=== PATIENT | male | born 1945 | race Caucasian/White ===

== ENCOUNTER 2017-02-22 13:29 | Inpatient (IN) | payer MEDICARE ==
[~2017-02-22 13:29] MED LIST: Iopamidol 370 76% 100 ML VIAL ONE
[2017-02-22] MEDS ORDERED: Water For Inject, Bacteriostat 30 ML ONE (13:35)
[2017-02-22] MEDS ORDERED: methylPREDNISolone Sod Succ/PF 125 MG/2 ML VIAL ONE (13:35)
[2017-02-22] MEDS ORDERED: diphenhydrAMINE HCl 50 MG/ML 1 ML VIAL ONE (13:37)
[2017-02-22 13:50] LABS: #Basophils 0.1 thou/uL (0.0-0.2); #Eosinphils 0.1 thou/uL (0.0-0.7); #Lymphocytes 1.6 thou/uL (1.20-3.40); #Monocytes 0.9 thou/uL (0.11-0.59); %Basophils 0.5 % (0.0-1.0); %Eosinophils 1.3 % (0.0-10.0); %Lymphocytes 15.3 % (21.0-51.0); %Monocytes 8.1 % (0.0-10.0); Hematocrit 44.5 % (42.0-52.0); Mean Platelet Volume 7.8 fL (7.4-10.4); Red Blood Cell (RBC) Count 4.63 mill/uL (4.70-6.10); White Blood Cell (WBC) Count 10.6 thou/uL (4.8-10.8)
[2017-02-22] MEDS ORDERED: Nitroglycerin 100MG/250ML BOT 250 ML ONE (14:05)
[2017-02-22] MEDS ORDERED: Norepinephrine 4 MG/4 ML VIAL ONE ×2 (14:19)
[2017-02-22] MEDS ORDERED: Heparin 10,000 UNITS/1 ML VIAL ONE (14:24)
[2017-02-22] MEDS ORDERED: Adenosine 6 MG/2 ML VIAL ONE (14:26)
[2017-02-22 14:30] LABS: Troponin I 0.463 ng/mL (< 0.028)
[2017-02-22 14:46] LABS: ALT (SGPT) 24 U/L (8-55); AST (SGOT) 29 U/L (5-34); Alkaline Phosphatase 62 U/L (40-150); BUN (Urea Nitrogen) 19 mg/dL (8.4-25.7); Bilirubin, Total 2.1 mg/dL (0.2-1.2); CK (CPK) 123 U/L (30-200); Calc. Creatinine Clearance 0 mL/min (70-130); Calcium 8.3 mg/dL (7.8-10.44); Carbon Dioxide 15 mmol/L (23-31); Chloride 110 mmol/L (98-107); Estimated GFR-MDRD 66; Globulin 2.5 g/dL (2.4-3.5); Protein, Total 5.9 g/dL (5.8-8.1)
[2017-02-22 14:48] LABS: Anion Gap 19 mmol/L (10-20)
[2017-02-22] MEDS ORDERED: Mag-Al 1200 mg/1200 mg/30 ML UDCUP PO PRN (15:10)
[2017-02-22] MEDS ORDERED: Zolpidem Tartrate 5 MG TAB PO PRN (15:10)
[2017-02-22] MEDS ORDERED: Milk Of Magnesia 30 ML UDCUP PO PRN (15:10)
--- NOTE | 2017-02-22 15:13 | HP ---
DATE OF CONSULTATION: 02/22/2017 CHIEF COMPLIANT: Acute myocardial infarction. HISTORY OF PRESENT ILLNESS: Mr. Gutierrez is a pleasant 72-year-old gentleman, who is a patient of Dr. Chet Simons. He has a history of CAD, status post bypass surgery in [place] in addition to \\\\"16 stents\\\\" per his history through the years. This was all done in [place], [place]. He was last seen at [facility] on 02/19/2017 for CVA. He also admits to have congestive heart failure. Mr. Gutierrez states he had presented with chest pain 2 hours prior to presentation. Pain continues. PAST MEDICAL HISTORY: As above including ischemic cardiomyopathy, ICD placement , renal insufficiency, diabetes mellitus, hypertension, CVA, cholecystectomy and right shoulder surgery. MEDICATIONS: Lipitor, Coreg, Plavix, Zetia, fluoxetine, Lantus, Flomax, lisinopril, Ultram. ALLERGIES: STREPTOKINASE and IODINE. FAMILY HISTORY: Positive for CAD. REVIEW OF SYSTEMS: Ten-point review of systems is reviewed and as above, otherwise negative. PHYSICAL EXAMINATION: VITAL SIGNS: Blood pressure 140/70, pulse 80, respirations 20. GENERAL: He does appear in a moderate distress. The patient appears his stated age. NEUROLOGIC: The patient is alert and oriented times 3 with no focal neurologic deficits. HEENT: Sclerae without icterus. Mouth has moist mucous membranes with normal pallor. NECK: No JVD. Carotid upstroke brisk. No bruits bilaterally. LUNGS: Clear to auscultation with unlabored respirations. BACK: No scoliosis or kyphosis. CARDIAC: Regular rate and rhythm with normal S1 and S2. No S3 or S4 noted. No significant rubs, murmurs, thrills, or gallops noted throughout the precordium. PMI is not displaced. There is no parasternal heave. ABDOMEN: Soft, nontender, nondistended. No peritoneal signs present. No hepatosplenomegaly. No abnormal striae. EXTREMITIES: 2+ femoral and 2+ dorsalis pedis pulses. No cyanosis, clubbing, or edema. SKIN: No gross abnormalities. PERTINENT LABS: Currently pending. Last creatinine of 1.33 with a GFR of 53. Troponin pending. EKG shows normal sinus rhythm with ST segment elevation noted anteriorly. IMPRESSION: 1. Acute myocardial infarction. 2. Ischemic cardiomyopathy. 3. Coronary artery disease. 4. Status post bypass pressure. 5. Previous stent placement. RECOMMENDATIONS: Mr. Gutierrez is certainly at significant increased risk of complications given renal insufficiency, history of contrast reaction, ischemic cardiomyopathy and multiple stents and history of bypass. He understands the risks to proceed with urgent coronary angiography. At this point, we would feel prudent to proceed given the history of EF of 20-25%. His risk of dying is markedly increased without treatment. I discussed the procedure in full detail with Mr. Gutierrez. The risks of the procedure were also discussed. The risks of the procedure include but are not limited to the following: , stroke, NH, need for emergency surgery, loss of limb, bleeding, and infection, as well as a reaction to the dye causing kidney failure and needing long-term dialysis. I also discussed the risks of PCI to include all of the above including coronary dissection and perforation in addition to acute stent thrombosis and restenosis. All questions about the procedure were answered. Given the above, the patient agreed to proceed with coronary angiography and possible PCI. All questions were answered. I also discussed drug-coated versus nondrug coated stent placement. There are no contraindications. We will proceed with drug-coated stent placement if needed. He understands the risk of contrast nephropathy. ISH
[2017-02-22] MEDS ORDERED: Iopamidol 370 76% 100 ML VIAL ONE (16:51)
[2017-02-22 17:55] LABS: Troponin I 1.654 ng/mL (< 0.028)
[2017-02-22] MEDS: Sodium Chloride 0.9% 1,000 ML IV SCH (18:16)
[2017-02-22] MEDS: Morphine Sulfate 2 MG/ML SYRINGE SLOW IVP PRN (19:33)
[2017-02-22] MEDS ORDERED: Atorvastatin Calcium 40 MG TAB PO SCH (21:00)
--- NOTE | 2017-02-22 21:34 | CCL ---
CATH ADDENDUM: 02/22/2017 Mr. Gutierrez was seen and evaluated for an acute myocardial infarction. He underwent successful angiography. He underwent successful stent placement to what appeared to be a saphenous vein graft to the LAD. His SIMONS appeared to graft either the LAD or the diagonal branch. His films from [place] were not available. There was FRANKY 1 flow present. With a SIMONS guide, I did engage the SIMONS. Wire was placed distally and successfully. A 2.5 balloon catheter was placed into what appeared to be the LAD. There continued to be FRANKY 1 flow. The LAD was never truly visualized. I was concerned about inflating an area that could not be visualized. Given that his symptoms have markedly improved, I decided not to proceed with further inflation. The graft to the LAD appeared to feed the right coronary artery. The patient was transferred to the ICU in guarded condition. POS: [facility]
[2017-02-23] MEDS: Sodium Chloride 0.9% 1,000 ML IV SCH ×2 (02:11→11:45)
[2017-02-23] MEDS: Acetaminophen/Codeine 30-300mg Tablet PO PRN ×3 (04:11→22:06)
[2017-02-23 05:04] LABS: #Lymphocytes 0.7 thou/uL (1.20-3.40); #Monocytes 0.4 thou/uL (0.11-0.59); %Basophils 0.1 % (0.0-1.0); %Eosinophils 0.1 % (0.0-10.0); %Lymphocytes 5.1 % (21.0-51.0); %Monocytes 3.1 % (0.0-10.0); Hematocrit 42.3 % (42.0-52.0); Red Blood Cell (RBC) Count 4.47 mill/uL (4.70-6.10); White Blood Cell (WBC) Count 14.2 thou/uL (4.8-10.8)
[2017-02-23 05:24] LABS: ALT (SGPT) 42 U/L (8-55); AST (SGOT) 171 U/L (5-34); Alkaline Phosphatase 63 U/L (40-150); Anion Gap 18 mmol/L (10-20); BUN (Urea Nitrogen) 19 mg/dL (8.4-25.7); Bilirubin, Total 1.7 mg/dL (0.2-1.2); Calc. Creatinine Clearance 0 mL/min (70-130); Calcium 8.7 mg/dL (7.8-10.44); Carbon Dioxide 18 mmol/L (23-31); Chloride 105 mmol/L (98-107); Estimated GFR-MDRD 66; Globulin 2.8 g/dL (2.4-3.5); Protein, Total 6.3 g/dL (5.8-8.1)
[2017-02-23] MEDS: Clopidogrel Bisulfate 75 MG TAB PO SCH (08:59)
[2017-02-23] MEDS: Morphine Sulfate 2 MG/ML SYRINGE SLOW IVP PRN (11:42)
[2017-02-23] MEDS ORDERED: Morphine Sulfate 2 MG/ML SYRINGE SLOW IVP SCH (12:15)
[2017-02-23 13:32] VITALS: BMI 29.7
--- NOTE | 2017-02-23 15:48 | PDOC.PN ---
- Subjective Encounter Start Date: 02/23/17 Encounter Start Time: 15:46 -: old records requested/rev pt is admitted for acute ME, he had cardiac cath yesterday, today we are consulted for diabetes management, no fever, no chest pain since CVA he reports some visual hallucination - Objective MAR Reviewed: Yes Vital Signs & Weight: Vital Signs (12 hours) Temp Pulse Resp Pulse Ox 02/23/17 11:00 97.9 F 02/23/17 08:00 97.5 F L 82 24 H 94 L 02/23/17 07:00 97.5 F L 02/23/17 04:00 97.6 F Weight Weight 183 lb 13.848 oz Most Recent Monitor Data Heart Rate from ECG 84 NIBP 129/79 NIBP BP-Mean 97 Respiration from ECG 15 SpO2 95 I&O: 02/22/17 02/23/17 02/24/17 06:59 06:59 06:59 Intake Total 2134 970 Output Total 1200 85 Balance 934 885 Result Diagrams: 02/23/17 04:03 02/23/17 04:03 Radiology Reviewed by me: Yes EKG Reviewed by me: Yes (NSR) Phys Exam - Physical Examination Constitutional: NAD HEENT: PERRLA, moist MMs, sclera anicteric Neck: no JVD, supple Respiratory: no wheezing, no rales, no rhonchi Cardiovascular: RRR, no significant murmur, no rub Gastrointestinal: soft, non-tender, no distention, positive bowel sounds Musculoskeletal: no edema, pulses present Neurological: non-focal, normal sensation, moves all 4 limbs Lymphatic: no nodes Psychiatric: normal affect Skin: no rash, normal turgor Dx/Plan (1) Acute [place] Code(s): I21.3 - ST ELEVATION (STEMI) MYOCARDIAL INFARCTION OF [facility] SITE Status: Acute (2) CAD (coronary artery disease) Code(s): I25.10 - ATHSCL HEART DISEASE OF [place] CORONARY ARTERY W/O ANG PCTRS Status: Chronic Qualifiers: Coronary Disease-Associated Artery/Lesion type: bypass graft [place] vs. transplanted heart: [place] heart Associated angina: without angina Qualified Code(s): I25.810 - Atherosclerosis of coronary artery bypass graft(s) without angina pectoris (3) CVA (cerebral vascular accident) Code(s): I63.9 - CEREBRAL INFARCTION, UNSPECIFIED Status: Chronic Qualifiers: Precerebral and cerebral artery: posterior cerebral artery Laterality of affected vessel: right (4) Chronic systolic (congestive) heart failure Code(s): I50.22 - CHRONIC SYSTOLIC (CONGESTIVE) HEART FAILURE Status: Chronic (5) DM type 2 (diabetes mellitus, type 2) Status: Chronic Qualifiers: Diabetes mellitus complication status: with ophthalmic complications Diabetes mellitus complication detail: with diabetic retinopathy Diabetic retinopathy severity: with unspecified retinopathy severity 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 Review of Systems - Review of Systems ENT: negative: Ear Pain, Ear Discharge, Nose Pain, Nose Discharge, Nose Congestion, Mouth Pain, Mouth Swelling, Throat Pain, Throat Swelling, Other Respiratory: negative: Cough, Dry, Shortness of Breath, Hemoptysis, SOB with Excertion, Pleuritic Pain, Sputum, Wheezing Cardiovascular: negative: Chest Pain, Palpitations, Orthopnea, Paroxysmal Noc. Dyspnea, Edema, Light Headedness, Other Gastrointestinal: negative: Nausea, Vomiting, Abdominal Pain, Diarrhea, Constipation, Melena, Hematochezia, Other Genitourinary: negative: Dysuria, Frequency, Incontinence, Hematuria, Retention , Other Musculoskeletal: negative: Neck Pain, Shoulder Pain, Arm Pain, Back Pain, Hand Pain, Leg Pain, Foot Pain, Other Skin: negative: Rash, Lesions, Alexander, Bruising, Other - Medications/Allergies Allergies/Adverse Reactions: Allergies Allergy/AdvReac Type Severity Reaction Status Date / Time Iodine and Iodide Containing Allergy Verified 02/17/17 17:02 Produc streptokinase Allergy Verified 12/07/16 12:55 Medications: Current Medications Acetaminophen/Codeine Phosphate (Tylenol #3) 1 tab PO Q4H PRN PRN Reason: Mild Pain (1-3) Last Admin: 02/23/17 08:59 Dose: 1 tab Al Hydroxide/Mg Hydroxide (Maalox) 30 ml PO Q3H PRN PRN Reason: Indigestion Last Admin: 02/23/17 11:41 Dose: 30 ml Aspirin (Aspirin Chewable) 81 mg PO DAILY [facility] Last Admin: 02/23/17 08:59 Dose: 81 mg Atorvastatin Calcium (Lipitor) 80 mg PO HS [facility] Carvedilol (Coreg) 6.25 mg PO BID-WM [facility] Clopidogrel Bisulfate (Plavix) 75 mg PO DAILY [facility] Last Admin: 02/23/17 08:59 Dose: 75 mg Ezetimibe (Zetia) 10 mg PO DAILY [facility] Fluoxetine HCl (Prozac) 20 mg PO DAILY [facility] Magnesium Hydroxide (Milk Of Magnesium) 30 ml PO Q12H PRN PRN Reason: Constipation Morphine Sulfate (Morphine Sulfate) 2 mg SLOW IVP Q4H PRN PRN Reason: Moderate Pain (4-6) Ranolazine (Ranexa) 1,000 mg PO BID [facility] Torsemide (Demadex) 20 mg PO DAILY [facility] Zolpidem Tartrate (Ambien) 5 mg PO HSPRN PRN PRN Reason: Insomnia Last Admin: 02/22/17 21:06 Dose: 5 mg
[2017-02-23] MEDS ORDERED: Dextrose 50% Abboject 50 ML SYRINGE SLOW IVP PRN (15:49)
[2017-02-23] MEDS ORDERED: Dextrose 5% in Water 1,000 ML IV PRN (15:49)
[2017-02-23] MEDS ORDERED: HumaLOG 300 UNITS/3 ML VIAL SC PRN (15:49)
--- NOTE | 2017-02-23 16:17 | PRG ---
DATE OF SERVICE: 02/23/2017 SERVICE: Pulmonary Medicine. INTERVAL HISTORY: The patient's chest discomfort is actually improved compared to yesterday. That being said, he is very sad this morning. On the SIG-E-CAPS, he has basically everything that is donis positive. He also has suicidal ideation. He is having some hallucinations and sees things crawlin g on the dasilva. From a medical standpoint, things are improving, but psychologically I wonder wheth er or not he is suffering from severe depression associated with his multiple comorbidities and rece nt losses. PAST MEDICAL HISTORY: 1. Chronic systolic heart failure. 2. Chronic kidney disease. 3. Type 2 diabetes mellitus. 4. Hypertension. 5. History of stroke. PAST SURGICAL HISTORY: 1. Right shoulder surgery. 2. Cholecystectomy. ALLERGIES: STREPTOKINASE, IODINE. MEDICATIONS: List of inpatient medicines were reviewed. No updates were made at this time. FAMILY HISTORY: Noncontributory. SOCIAL HISTORY: Negative for significant tobacco, alcohol or illicit drug use presently. He has no exposure to chemicals, dust, asbestosis or tuberculosis. REVIEW OF SYSTEMS: General, head, ears, eyes, nose, throat, cardiovascular, respiratory, GI, , mu sculoskeletal, neurologic and skin is negative except as mentioned in the HPI. PHYSICAL EXAMINATION: VITAL SIGNS: Afebrile, pulse 84, blood pressure 120/79, respirations 15, saturation 95% on room air . GENERAL: Patient is awake, alert, in no apparent distress. LUNGS: Excellent air entry. There is no prolonged expiratory phase, wheezing, rhonchi or crackles. HEART: Normal rate, regular. ABDOMEN: Soft, nontender, nondistended. Bowel sounds positive. MUSCULOSKELETAL: No cyanosis or clubbing. No pitting in the bilateral lower extremities. NEUROLOGIC: Grossly nonfocal. LABORATORY DATA: WBC 14.2, hemoglobin 13.6, and platelets 235,000. Creatinine 1.10 and stable. Bi carb has improved to 18. Total bilirubin is better at 1.7. Liver function studies are otherwise un remarkable except for an AST of 171. Troponin has increased to 1.65. ASSESSMENT: 1. ST elevation myocardial infarction. 2. Major depressive disorder, suspected. PLAN: From my perspective, he is stable for transition out to the telemetry unit, Once the patient goes to the floor, he will have no further requirements from Pulmonary or Critical Care opinion. T hat being said, I will place a mental health evaluation for him because at this point, he says he is actively suicidal.
[2017-02-23] MEDS: HumaLOG 300 UNITS/3 ML VIAL SC PRN (17:01)
[2017-02-23] MEDS: Carvedilol 6.25 MG TAB PO SCH (17:01)
[2017-02-23] MEDS: Tamsulosin HCl 0.4 MG CAP PO SCH (22:07)
[2017-02-23] MEDS: Atorvastatin Calcium 40 MG TAB PO SCH (22:07)
[2017-02-24] MEDS: HumaLOG 300 UNITS/3 ML VIAL SC PRN ×2 (07:36→11:48)
[2017-02-24] MEDS: Clopidogrel Bisulfate 75 MG TAB PO SCH (08:30)
[2017-02-24] MEDS: Torsemide 20 MG TAB PO SCH (08:30)
[2017-02-24] MEDS: Ezetimibe 10 MG TAB PO SCH (08:30)
[2017-02-24] MEDS: FLUoxetine HCl 20 MG CAP PO SCH (08:31)
[2017-02-24] MEDS: Carvedilol 6.25 MG TAB PO SCH ×2 (08:31→17:39)
[2017-02-24] MEDS ORDERED: INSULIN DEGLUDEC 50 UNIT SQ SCH (09:00)
[2017-02-24] MEDS ORDERED: Tamsulosin HCl 0.4 MG CAP PO SCH (09:00)
[2017-02-24 09:30] LABS: #Lymphocytes 1.3 thou/uL (1.20-3.40); #Monocytes 1.6 thou/uL (0.11-0.59); #Neutrophils 13.7 thou/uL (1.40-6.50); %Eosinophils 0.3 % (0.0-10.0); %Lymphocytes 7.9 % (21.0-51.0); %Monocytes 9.4 % (0.0-10.0); Hematocrit 43.3 % (42.0-52.0); Mean Platelet Volume 7.8 fL (7.4-10.4); Red Blood Cell (RBC) Count 4.53 mill/uL (4.70-6.10); White Blood Cell (WBC) Count 16.6 thou/uL (4.8-10.8)
[2017-02-24 09:51] LABS: Anion Gap 17 mmol/L (10-20); BUN (Urea Nitrogen) 22 mg/dL (8.4-25.7); BUN/Creatinine Ratio 18.18; Calc. Creatinine Clearance 64 mL/min (70-130); Calcium 8.7 mg/dL (7.8-10.44); Carbon Dioxide 17 mmol/L (23-31); Chloride 105 mmol/L (98-107); Estimated GFR-MDRD 59; Magnesium 2.5 mg/dL (1.6-2.6); Phosphorus 3.3 mg/dL (2.3-4.7)
[2017-02-24] MEDS ORDERED: Insulin Detemir 100 UNITS/ML 15 UNITS in Pre-Filled Syringe 1 EACH SC SCH ×2 (10:15→21:00)
[2017-02-24] MEDS ORDERED: Insulin Detemir 100 UNITS/ML 40 UNITS in Pre-Filled Syringe 1 EACH SC SCH (11:00)
--- NOTE | 2017-02-24 11:31 | PDOC.PN ---
- Subjective Encounter Start Date: 02/24/17 Encounter Start Time: 10:45 Patient seen and examined. No new complaints. No overnight events. Sitting on chair. No CP - Objective MAR Reviewed: Yes Vital Signs & Weight: Vital Signs (12 hours) Temp Pulse Resp BP Pulse Ox 02/24/17 09:00 97.9 F 02/24/17 08:31 103/57 L 02/24/17 08:00 97.9 F 71 17 100 02/24/17 07:20 99 02/24/17 07:00 97.9 F 02/24/17 04:00 97.8 F 02/24/17 00:00 97.9 F Weight Weight 183 lb 13.848 oz Most Recent Monitor Data Heart Rate from ECG 61 NIBP 112/65 NIBP BP-Mean 73 Respiration from ECG 12 SpO2 97 I&O: 02/23/17 02/24/17 02/25/17 06:59 06:59 06:59 Intake Total 2134 2626 400 Output Total 1200 810 250 Balance 934 1816 150 Result Diagrams: 02/24/17 09:19 02/24/17 09:19 Additional Labs: Accuchecks 02/24/17 02/24/17 02/23/17 06:37 00:52 16:50 POC Glucose 160 H 173 H 193 H EKG Reviewed by me: Yes (Tele SR) Phys Exam - Physical Examination Constitutional: NAD Respiratory: no wheezing, no rhonchi Cardiovascular: RRR, no rub Gastrointestinal: soft, non-tender, positive bowel sounds Musculoskeletal: no edema Neurological: non-focal, moves all 4 limbs Psychiatric: A&O x 3 Dx/Plan (1) DM type 2 (diabetes mellitus, type 2) Status: Chronic (2) CKD (chronic kidney disease) stage 2, GFR 60-89 ml/min Code(s): N18.2 - CHRONIC KIDNEY DISEASE, STAGE 2 (MILD) Status: Chronic - Plan cont current plan of care, DVT proph w/SCDs * Change insulin to Levemir 40 units daily * Cont sliding scale * Will follow Review of Systems - Review of Systems Constitutional: negative: Fever, Chills, Sweats, Weakness, Malaise, Other Respiratory: negative: Cough, Dry, Shortness of Breath, Hemoptysis, SOB with Excertion, Pleuritic Pain, Sputum, Wheezing Cardiovascular: negative: Chest Pain, Palpitations, Orthopnea, Paroxysmal Noc. Dyspnea, Edema, Light Headedness, Other Gastrointestinal: negative: Nausea, Vomiting, Abdominal Pain, Diarrhea, Constipation, Melena, Hematochezia, Other Neurological: negative: Weakness, Numbness, Incoordination, Change in Speech, Confusion, Seizures, Other - Medications/Allergies Allergies/Adverse Reactions: Allergies Allergy/AdvReac Type Severity Reaction Status Date / Time Iodine and Iodide Containing Allergy Verified 02/17/17 17:02 Produc streptokinase Allergy Verified 12/07/16 12:55 Medications: Current Medications Acetaminophen/Codeine Phosphate (Tylenol #3) 1 tab PO Q4H PRN PRN Reason: Mild Pain (1-3) Last Admin: 02/23/17 22:06 Dose: 1 tab Al Hydroxide/Mg Hydroxide (Maalox) 30 ml PO Q3H PRN PRN Reason: Indigestion Last Admin: 02/23/17 11:41 Dose: 30 ml Aspirin (Aspirin Chewable) 81 mg PO DAILY [facility] Last Admin: 02/24/17 08:30 Dose: 81 mg Atorvastatin Calcium (Lipitor) 80 mg PO HS [facility] Last Admin: 02/23/17 22:07 Dose: 80 mg Carvedilol (Coreg) 6.25 mg PO BID-WM [facility] Last Admin: 02/24/17 08:31 Dose: 6.25 mg Clopidogrel Bisulfate (Plavix) 75 mg PO DAILY [facility] Last Admin: 02/24/17 08:30 Dose: 75 mg Dextrose/Water (Dextrose 50%) 25 gm SLOW IVP PRN PRN PRN Reason: Hypoglycemia Ezetimibe (Zetia) 10 mg PO DAILY [facility] Last Admin: 02/24/17 08:30 Dose: 10 mg Fluoxetine HCl (Prozac) 20 mg PO DAILY [facility] Last Admin: 02/24/17 08:31 Dose: 20 mg Glucagon (Glucagon) 1 mg IM PRN PRN PRN Reason: Hypoglycemia Dextrose/Water (D5w) 1,000 mls @ 0 mls/hr IV .Q0M PRN; As Directed PRN Reason: Hypoglycemia Insulin Detemir 40 units/ (Miscellaneous Medication) 0.4 mls @ 0 mls/hr SC 1100 [facility] Stop: 02/24/17 13:00 Insulin Detemir 40 units/ (Miscellaneous Medication) 0.4 mls @ 0 mls/hr SC QAM [facility] Insulin Human Lispro (Humalog) 0 units SC .MODERATE SLIDING SC PRN PRN Reason: Moderate Correctional Scale Last Admin: 02/24/17 07:36 Dose: 2 unit Insulin Human Lispro (Humalog) 0 units SC .BEDTIME SLIDING SC PRN PRN Reason: Bedtime Correctional Scale Magnesium Hydroxide (Milk Of Magnesium) 30 ml PO Q12H PRN PRN Reason: Constipation Morphine Sulfate (Morphine Sulfate) 2 mg SLOW IVP Q4H PRN PRN Reason: Moderate Pain (4-6) Last Admin: 02/24/17 05:19 Dose: 2 mg Ranolazine (Ranexa) 1,000 mg PO BID [facility] Last Admin: 02/24/17 08:30 Dose: 1,000 mg Tamsulosin HCl (Flomax) 0.4 mg PO HS [facility] Last Admin: 02/23/17 22:07 Dose: 0.4 mg Torsemide (Demadex) 20 mg PO DAILY [facility] Last Admin: 02/24/17 08:30 Dose: 20 mg Zolpidem Tartrate (Ambien) 5 mg PO HSPRN PRN PRN Reason: Insomnia Last Admin: 02/22/17 21:06 Dose: 5 mg
--- NOTE | 2017-02-24 11:46 | PDOC.CTH ---
Cardiology Progress Note - Subjective He is doing well. he denies any chest pain, tightness, pressure. - Objective Vital Signs Temp Pulse Resp BP Pulse Ox 02/24/17 09:00 97.9 F 02/24/17 08:31 103/57 L 02/24/17 08:00 97.9 F 71 17 100 02/24/17 07:20 99 02/24/17 07:00 97.9 F 02/24/17 04:00 97.8 F 02/24/17 00:00 97.9 F Weight 183 lb 13.848 oz 02/23/17 02/24/17 02/25/17 06:59 06:59 06:59 Intake Total 2134 2626 400 Output Total 1200 810 250 Balance 934 1816 150 - Physical Examination General/Neuro: alert & oriented x3, NAD Neck: no JVD present Lungs: unlabored respirations Heart: RRR Abdomen: NT/ND Extremities: + edema B (1+) - Telemetry Telemetry Rhythm: NSR - Labs Result Diagrams: 02/24/17 09:19 02/24/17 09:19 Troponin/CKMB CK-MB (CK-2) 12.0 ng/mL (0-6.6) H* 02/22/17 17:03 Troponin I 1.654 ng/mL (< 0.028) H* 02/22/17 17:03 - Assessment/Plan 1. Acute [place], likely culprit is vein graft to LAD. Conservative management. 2. Acte on Chronic systolic heart failure EF at 20-25% 3. Depression with suicidal thoughts. Mental health evaluation. 4. HTN, HLP PLAN: - One dose IV lasix - May transfer to telemtry floor. - BP borderline low to add ACEI/ARB.
--- NOTE | 2017-02-24 15:01 | PRG ---
DATE OF SERVICE: 02/24/2017 SUBJECTIVE: This morning, he is awake, alert, and responsive. No pain and no shortness of breath. PHYSICAL EXAMINATION: VITAL SIGNS: Blood pressure 103/57, sats 100%, respirations 18, temperature 98.7. CHEST: Decreased breath sounds, no wheezing. CARDIAC: Normal S1 and S2. No gallops. ABDOMEN: Soft. No masses. IMPRESSION: 1. Coronary artery disease. 2. Myocardial infarction, status post bypass. PLAN: Otherwise, he is stable enough to be transferred out of the ICU as per Cardiology. We will f ollow up in the ICU. Continue supportive care.
[2017-02-24] MEDS ORDERED: Ondansetron ODT 4 MG TAB PO PRN (17:07)
[2017-02-24] MEDS: Ondansetron HCl/PF 4 MG/2 ML Vial IVP PRN (17:30)
[2017-02-24] MEDS: Atorvastatin Calcium 40 MG TAB PO SCH (22:08)
[2017-02-24] MEDS: Tamsulosin HCl 0.4 MG CAP PO SCH (22:08)
[2017-02-25 05:04] LABS: #Lymphocytes 1.3 thou/uL (1.20-3.40); #Monocytes 1.7 thou/uL (0.11-0.59); #Neutrophils 12.1 thou/uL (1.40-6.50); %Basophils 0.2 % (0.0-1.0); %Eosinophils 0.3 % (0.0-10.0); %Lymphocytes 8.7 % (21.0-51.0); %Monocytes 11.4 % (0.0-10.0); Hematocrit 39.7 % (42.0-52.0); Mean Platelet Volume 8.6 fL (7.4-10.4); Red Blood Cell (RBC) Count 4.23 mill/uL (4.70-6.10); White Blood Cell (WBC) Count 15.3 thou/uL (4.8-10.8)
[2017-02-25 05:10] LABS: ALT (SGPT) 43 U/L (8-55); AST (SGOT) 96 U/L (5-34); Alkaline Phosphatase 61 U/L (40-150); Anion Gap 16 mmol/L (10-20); BUN (Urea Nitrogen) 29 mg/dL (8.4-25.7); Bilirubin, Total 2.4 mg/dL (0.2-1.2); Calc. Creatinine Clearance 53 mL/min (70-130); Calcium 8.8 mg/dL (7.8-10.44); Carbon Dioxide 18 mmol/L (23-31); Chloride 102 mmol/L (98-107); Estimated GFR-MDRD 47; Globulin 2.7 g/dL (2.4-3.5); Magnesium 2.2 mg/dL (1.6-2.6); Protein, Total 6.1 g/dL (5.8-8.1)
[2017-02-25] MEDS: Ondansetron HCl/PF 4 MG/2 ML Vial IVP PRN ×3 (07:40→20:45)
[2017-02-25] MEDS: Carvedilol 6.25 MG TAB PO SCH ×2 (10:15→17:36)
[2017-02-25] MEDS: FLUoxetine HCl 20 MG CAP PO SCH (10:15)
[2017-02-25] MEDS: Clopidogrel Bisulfate 75 MG TAB PO SCH (10:16)
[2017-02-25] MEDS: Ezetimibe 10 MG TAB PO SCH (10:16)
[2017-02-25] MEDS: Torsemide 20 MG TAB PO SCH (10:16)
[2017-02-25] MEDS: Insulin Detemir 100 UNITS/ML 40 UNITS in Pre-Filled Syringe 1 EACH SC SCH (10:17)
--- NOTE | 2017-02-25 11:14 | PDOC.PN ---
- Subjective Encounter Start Date: 02/25/17 Encounter Start Time: 10:30 Subjective: +Nausea. - Objective Resuscitation Status: Alert, in no distress. Vital Signs & Weight: Vital Signs (12 hours) Pulse Resp BP BP 02/25/17 10:15 115/70 02/25/17 03:48 82 20 122/73 Weight Weight 183 lb 13.848 oz Most Recent Monitor Data Heart Rate from ECG 67 NIBP 98/59 NIBP BP-Mean 72 Respiration from ECG 27 SpO2 97 I&O: 02/24/17 02/25/17 02/26/17 06:59 06:59 06:59 Intake Total 2626 620 Output Total 810 250 Balance 1816 370 Result Diagrams: 02/25/17 04:05 02/25/17 04:05 Additional Labs: Accuchecks 02/25/17 02/24/17 02/24/17 05:44 19:57 17:22 POC Glucose 141 H 168 H 158 H 02/24/17 11:08 POC Glucose 225 H Phys Exam - Physical Examination HEENT: sclera anicteric Neck: no JVD Respiratory: clear to auscultation bilateral Cardiovascular: RRR Gastrointestinal: soft, non-tender, no distention Musculoskeletal: no edema Neurological: moves all 4 limbs Psychiatric: A&O x 3 Dx/Plan (1) CHF (congestive heart failure) Code(s): I50.9 - HEART FAILURE, UNSPECIFIED Status: Acute Plan: continue current therapy. Comment: Compensated. (2) Acute [place] Code(s): I21.3 - ST ELEVATION (STEMI) MYOCARDIAL INFARCTION OF [facility] SITE Status: Acute Plan: f/u with cardiology.. Comment: stable. (3) CKD (chronic kidney disease) stage 2, GFR 60-89 ml/min Code(s): N18.2 - CHRONIC KIDNEY DISEASE, STAGE 2 (MILD) Status: Chronic Plan: f/u chemistry. Comment: Serum creat higher; possibly due to diuretics. (4) DM type 2 (diabetes mellitus, type 2) Status: Chronic Comment: BS satisfactory.. (5) Dyslipidemia Code(s): E78.5 - HYPERLIPIDEMIA, UNSPECIFIED Status: Chronic (6) HTN (hypertension) Code(s): I10 - ESSENTIAL (PRIMARY) HYPERTENSION Status: Chronic Qualifiers: Hypertension type: essential hypertension Qualified Code(s): I10 - Essential (primary) hypertension Comment: BP satisfactory.. - Plan -: f/u with cardiology. -: Home soon. * .
--- NOTE | 2017-02-25 15:10 | PDOC.CTH ---
Cardiology Progress Note - Subjective No new issues or complaints. He denies any chest pain, tightness, pressure. - Objective Vital Signs Temp Pulse Pulse Pulse Resp BP BP 02/25/17 12:55 70 60 123/71 02/25/17 11:40 97.8 F 79 17 02/25/17 10:15 115/70 02/25/17 08:00 02/25/17 07:25 96.4 F L 67 18 02/25/17 03:48 82 20 BP BP Pulse Ox Pulse Ox 02/25/17 12:55 130/75 94 L 02/25/17 11:40 108/66 96 02/25/17 10:15 02/25/17 08:00 96 02/25/17 07:25 115/70 96 02/25/17 03:48 122/73 Weight 183 lb 13.848 oz 02/24/17 02/25/17 02/26/17 06:59 06:59 06:59 Intake Total 2626 620 Output Total 810 250 Balance 1816 370 - Physical Examination General/Neuro: alert & oriented x3, NAD Neck: no JVD present Lungs: CTA, unlabored respirations Heart: RRR - Labs Result Diagrams: 02/25/17 04:05 02/25/17 04:05 Troponin/CKMB CK-MB (CK-2) 12.0 ng/mL (0-6.6) H* 02/22/17 17:03 Troponin I 1.654 ng/mL (< 0.028) H* 02/22/17 17:03 - Assessment/Plan 1. Acute [place], likely culprit is vein graft to LAD. Conservative management. 2. Acte on Chronic systolic heart failure EF at 20-25% 3. Depression with suicidal thoughts. Mental health evaluation. 4. HTN, HLP PLAN: - Will hold on ACEI as creatinine is mildly higher than yesterday. Will also hold torsemide . - Continue other meds.
--- NOTE | 2017-02-25 17:20 | PRG ---
DATE OF SERVICE: 02/25/2017 SUBJECTIVE: He is complaining of marked weakness. is complaining no one is help him to ambula te. Though he said he is not having chest pain or shortness of breath. OBJECTIVE: VITAL SIGNS: Blood pressure 128/73, respiratory rate 20, room air. CHEST: Decreased breath sounds, no wheezing. CARDIAC: Normal S1, S2. No gallops. LABORATORY DATA: Creatinine 1.47. Glucose is elevated. His white count is 15,000. IMPRESSION: 1. Renal failure. 2. Congestive heart failure. 3. Cerebrovascular accident with marked weakness. PLAN: Continue PT aggressive. Supportive care. We will follow.
--- NOTE | 2017-02-25 19:12 | RAD ---
AP CHEST: Indication: 72-year-old male with complaints of chest burning when enhaling. Comparison: 12-09-16 IMPRESSION: No acute cardiopulmonary abnormality. Stable post CABG change. Stable cardiomegaly. AICD is unchange d. Osseous structures appear similar. COMMENTS: The exam is compared to a prior dated 12-09-16. POS: [facility]
--- NOTE | 2017-02-25 20:20 | CON ---
DATE OF CONSULTATION: 02/22/2017 NEPHROLOGY CONSULTATION CONSULTING PHYSICIAN: Dr. Pastor. REASON FOR CONSULTATION: Acute kidney injury. REASON FOR ADMISSION: Chest pain. HISTORY OF PRESENT ILLNESS: This is a 72-year-old male with history of coronary artery disease, AIC D, type 2 diabetes, and hypertension, who came to the hospital with chest pain and has been evaluate d by Cardiology. The patient's creatinine was found to be 1.4. His baseline creatinine is around 1 .2. He denies any chest pain today and no shortness of breath, no fever or chills, no nausea, vomit ing, diarrhea. No back pain. PAST MEDICAL HISTORY: Positive for CVA, hypertension, type 2 diabetes, cardiomyopathy, hyperlipidem ia. PAST SURGICAL HISTORY: CABG, cholecystectomy, right shoulder surgery. HOME MEDICATIONS: Lipitor, Coreg, Plavix, Zetia, paroxetine, Lantus, lisinopril, Florastor, Flomax, torsemide, Ultram. ALLERGIES: STREPTOKINASE. SOCIAL HISTORY: No smoking, alcohol or illicit drug abuse. FAMILY HISTORY: Positive for stroke. REVIEW OF SYSTEMS: The following complete review of systems was negative, unless otherwise mentione d in the HPI or below: CONSTITUTIONAL: Weight loss or gain, ability to conduct usual activities. SKIN: Rash, itching. EYES: Double vision, pain. ENT/MOUTH: Nose bleeding, neck stiffness, pain, tenderness. CARDIOVASCULAR: Palpitations, dyspnea on exertion, orthopnea. RESPIRATORY: Shortness of breath, wheezing, cough, hemoptysis, fever or night sweats. GASTROINTESTINAL: Poor appetite, abdominal pain, heartburn, nausea, vomiting, constipation, or diar cristofer. GENITOURINARY: Urgency, frequency, dysuria, nocturia. MUSCULOSKELETAL: Pain, swelling. NEUROLOGIC/PSYCHIATRIC: Anxiety, depression. ALLERGY/IMMUNOLOGIC: Skin rash, bleeding tendency. PHYSICAL EXAMINATION: GENERAL: Obese male in no apparent distress. VITAL SIGNS: Temperature 97.8, pulse 70, respirations 20, blood pressure . HEENT: Atraumatic, normocephalic. Oral mucosa is moist. NECK: Supple, no masses. CARDIOVASCULAR: S1, S2 heard. Rate and rhythm regular. RESPIRATORY: Clear. MUSCULOSKELETAL: No tenderness. No edema. DERMATOLOGIC: No skin rash. NEUROLOGIC: Alert, awake, moving all the extremities. PSYCHIATRIC: Mood and affect normal. LABORATORY DATA: Potassium is 4.5, BUN was creatinine 1.1. ASSESSMENT AND PLAN: 1. Acute kidney injury, most likely cardiorenal syndrome. Agree with cautious use of diuretics. 2. Cardiorenal syndrome. Continue optimization of cardiac medications. Follow with Cardiology. 3. Edema with fluid overload, on torsemide. We will monitor renal function and electrolytes. 4. Anemia, mild. 5. Hypertension, stable. Avoid nephrotoxins. We will follow. Thank you for the consultation.
[2017-02-25] MEDS: Tamsulosin HCl 0.4 MG CAP PO SCH (20:43)
[2017-02-25] MEDS: Atorvastatin Calcium 40 MG TAB PO SCH (20:43)
[2017-02-26] MEDS: Ondansetron HCl/PF 4 MG/2 ML Vial IVP PRN ×2 (04:04→15:26)
[2017-02-26 05:20] LABS: #Eosinphils 0.1 thou/uL (0.0-0.7); #Lymphocytes 1.2 thou/uL (1.20-3.40); #Monocytes 1.8 thou/uL (0.11-0.59); #Neutrophils 12.6 thou/uL (1.40-6.50); %Eosinophils 0.8 % (0.0-10.0); %Lymphocytes 7.8 % (21.0-51.0); %Monocytes 11.2 % (0.0-10.0); Hematocrit 39.3 % (42.0-52.0); Mean Platelet Volume 8.4 fL (7.4-10.4); Red Blood Cell (RBC) Count 4.23 mill/uL (4.70-6.10); White Blood Cell (WBC) Count 15.7 thou/uL (4.8-10.8)
[2017-02-26] MEDS ORDERED: Lisinopril 2.5 MG TAB PO SCH (09:00)
[2017-02-26] MEDS: Clopidogrel Bisulfate 75 MG TAB PO SCH (09:06)
[2017-02-26] MEDS: FLUoxetine HCl 20 MG CAP PO SCH (09:06)
[2017-02-26] MEDS: Carvedilol 6.25 MG TAB PO SCH ×2 (09:06→16:42)
[2017-02-26] MEDS: Ezetimibe 10 MG TAB PO SCH (09:06)
[2017-02-26] MEDS: Insulin Detemir 100 UNITS/ML 40 UNITS in Pre-Filled Syringe 1 EACH SC SCH (09:08)
[2017-02-26] MEDS: Pantoprazole 40 MG VIAL IVP SCH (09:08)
[2017-02-26 10:05] LABS: Anion Gap 18 mmol/L (10-20); BUN (Urea Nitrogen) 31 mg/dL (8.4-25.7); Calc. Creatinine Clearance 48 mL/min (70-130); Calcium 8.7 mg/dL (7.8-10.44); Carbon Dioxide 19 mmol/L (23-31); Chloride 97 mmol/L (98-107); Estimated GFR-MDRD 38
[2017-02-26 10:45] LABS: Anion Gap 15 mmol/L (10-20); BUN (Urea Nitrogen) 35 mg/dL (8.4-25.7); Calc. Creatinine Clearance 47 mL/min (70-130); Calcium 8.8 mg/dL (7.8-10.44); Carbon Dioxide 20 mmol/L (23-31); Chloride 98 mmol/L (98-107); Estimated GFR-MDRD 37
--- NOTE | 2017-02-26 11:28 | RAD ---
KUB: INDICATION: Nausea, vomiting, and abdominal pain. FINDINGS: There is mild scattered gaseous distention of loops of small and large bowel as well as the stomach. There are no overt radiographic changes of small bowel obstruction. The gallbladder is surgically absent. There is an endovascular stent in the region of left renal artery. Lung bases are clear. There is partial visualization of AICD. There is multilevel spondylosis of the lumbar spine. Ther e are scattered vascular calcifications seen within the abdomen and pelvis. IMPRESSION: No acute abnormality. POS: OWEN
--- NOTE | 2017-02-26 11:58 | PRG ---
DATE OF SERVICE: 02/26/2017 SUBJECTIVE: This is a very pleasant 72-year-old gentleman being seen for acute kidney injury. The patient denies any nausea, vomiting or chest pain. PHYSICAL EXAMINATION: GENERAL: Patient is awake, alert. VITAL SIGNS: Afebrile, pulse 82, breathing at 16, blood pressure 116/69. OBJECTIVE: See above. Awake, alert, in no acute distress. GENERAL APPEARANCE AND MENTAL STATUS: Fair. HEAD/NECK: Normocephalic. Atraumatic. EYES: EOMI. No deformity. EARS: Clear. No ulcers. NOSE: Intact. No lesions. MOUTH: Clear. No discharge. THROAT: Clear. No exudate. LUNGS: Clear. No crackles. CARDIAC: S1, S2. No rub. ABDOMEN: Benign. BS+. GENITALIA/RECTUM: Oneil absent. BACK/EXTREMITIES: Edema 0+ Ulcer- NEUROLOGICAL: Alert and motor intact. SKIN: Rash- Bruise- LYMPHATICS: Edema- Ulcer- LABORATORY: Creatinine 1.7, sodium 120. ASSESSMENT AND RECOMMENDATIONS: 1. Acute kidney injury with chronic kidney disease, doesn't want any aggressive treatment wants comfort care I will sign off. 2. Hyponatremia, stable. 3. Medications based on GFR are appropriate. 4. Metabolic acidosis, stable. No indication for dialysis at this time. MTDD
[2017-02-26] MEDS: Atorvastatin Calcium 40 MG TAB PO SCH (18:54)
[2017-02-26] MEDS: Tamsulosin HCl 0.4 MG CAP PO SCH (18:54)
--- NOTE | 2017-02-26 21:31 | PRG ---
DATE OF SERVICE: 02/26/2017 SUBJECTIVE: The patient is doing much better today. Denies any nausea, vomiting, chest pain, or sh ortness of breath. OBJECTIVE: VITAL SIGNS: Blood pressure is 116/69, afebrile, pulse is 82, breathing at 16, comfortable. GENERAL: The patient is lying in bed, in no apparent distress. HEENT: Atraumatic, normocephalic. Pupils equally round, reactive to light. Extraocular movements are intact. Mucous membranes are moist. NECK: No JVD. CHEST: Breath sounds , no rales or rhonchi. HEART: S1, S2. No murmurs or gallops. ABDOMEN: Soft. EXTREMITIES: No cyanosis, clubbing, or edema. Distal pulses present. NEUROLOGIC: Alert, awake, oriented. No cranial deficits. No sensorimotor deficits. LABORATORY DATA: Creatinine is 1.7. Sodium is 120. ASSESSMENT AND PLAN: 1. Acute myocardial infarction with ejection fraction of 20%, management as per Cardiology. 2. Acute on chronic systolic congestive heart failure with an ejection fraction of 20%. Continue c urrent treatment. 3. Depression and suicidal thoughts, consult [facility]. 4. Diabetes mellitus, stable. 5. Hypertension, stable. 6. History of cerebrovascular accident, stable. 7. Acute kidney injury secondary to cardiorenal symptoms, stable. I spoke with Dr. Meneses in detail and we agree with him that the patient has poor prognosis. He spoke to the patient about hospice. Will consult hospice, [facility]. The patient was anuric today and the family has denied an y other lab work or diagnostic testing. We will respect his wishes. We will get hospice on board. We will work with the family for the patient.
[2017-02-27 05:42] LABS: Anion Gap 14 mmol/L (10-20); BUN (Urea Nitrogen) 38 mg/dL (8.4-25.7); Calc. Creatinine Clearance 46 mL/min (70-130); Calcium 8.7 mg/dL (7.8-10.44); Carbon Dioxide 20 mmol/L (23-31); Chloride 97 mmol/L (98-107); Estimated GFR-MDRD 36
[2017-02-27] MEDS: Pantoprazole 40 MG VIAL IVP SCH (08:28)
[2017-02-27] MEDS: Ezetimibe 10 MG TAB PO SCH (08:29)
[2017-02-27] MEDS: Carvedilol 6.25 MG TAB PO SCH ×2 (08:29→17:30)
[2017-02-27] MEDS: FLUoxetine HCl 20 MG CAP PO SCH (08:29)
[2017-02-27] MEDS: Clopidogrel Bisulfate 75 MG TAB PO SCH (08:29)
[2017-02-27] MEDS: Insulin Detemir 100 UNITS/ML 40 UNITS in Pre-Filled Syringe 1 EACH SC SCH (08:30)
[2017-02-27] MEDS ORDERED: Torsemide 10 MG TAB PO SCH (09:45)
[2017-02-27] MEDS ORDERED: Torsemide 20 MG TAB PO SCH (10:00)
--- NOTE | 2017-02-27 11:54 | PDOC.EVN ---
Event Note - Event Note Event Note: pt has had no suicidal ideation for atleast 48 hrs since i have been following him. he says he might have said it to staff in the heat of the moment. he is not suicidal and has no plan to hurt himself. 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
--- NOTE | 2017-02-27 11:57 | PDOC.PN ---
- Subjective Encounter Start Date: 02/27/17 Encounter Start Time: 11:55 breathing better, no cp, no sob, no f/c - Objective Resuscitation Status: Resuscitation Status DNR:Do Not Resuscitate MAR Reviewed: Yes Vital Signs & Weight: Vital Signs (12 hours) Temp Pulse Resp BP BP Pulse Ox 02/27/17 08:29 122/77 02/27/17 08:25 97.5 F L 81 18 95 02/27/17 08:22 97.5 F L 81 18 122/77 95 02/27/17 04:00 98.0 F 63 18 131/72 97 Weight Weight 200 lb Most Recent Monitor Data Heart Rate from ECG 67 NIBP 98/59 NIBP BP-Mean 72 Respiration from ECG 27 SpO2 97 I&O: 02/26/17 02/27/17 02/28/17 06:59 06:59 06:59 Intake Total 120 1020 Output Total 450 175 Balance -330 845 Result Diagrams: 02/26/17 04:57 02/27/17 04:20 Additional Labs: Accuchecks 02/27/17 02/26/17 02/26/17 05:36 20:28 17:59 POC Glucose 146 H 186 H 199 H Phys Exam - Physical Examination Constitutional: NAD HEENT: PERRLA Neck: no JVD decreased bs at the bases Cardiovascular: no significant murmur Gastrointestinal: non-tender Musculoskeletal: pulses present Neurological: normal sensation, moves all 4 limbs Psychiatric: A&O x 3 Dx/Plan (1) Acute on chronic systolic (congestive) heart failure Code(s): I50.23 - ACUTE ON CHRONIC SYSTOLIC (CONGESTIVE) HEART FAILURE Status : Acute Comment: ef 20% (2) Visual hallucinations Code(s): R44.1 - VISUAL HALLUCINATIONS Status: Acute Comment: sees people. some times [place] sister says- it happened in past with morphine use will monitor (3) Acute [place] Code(s): I21.3 - ST ELEVATION (STEMI) MYOCARDIAL INFARCTION OF [facility] SITE Status: Resolved Comment: stable. conservative care (4) CVA (cerebral vascular accident) Code(s): I63.9 - CEREBRAL INFARCTION, UNSPECIFIED Status: Chronic Qualifiers: Precerebral and cerebral artery: posterior cerebral artery Laterality of affected vessel: right (5) DM type 2 (diabetes mellitus, type 2) Status: Chronic Comment: BS satisfactory.. (6) HTN (hypertension) Code(s): I10 - ESSENTIAL (PRIMARY) HYPERTENSION Status: Chronic Qualifiers: Hypertension type: essential hypertension Qualified Code(s): I10 - Essential (primary) hypertension Comment: BP satisfactory.. (7) Acute on chronic renal failure Code(s): N17.9 - ACUTE KIDNEY FAILURE, UNSPECIFIED; N18.9 - CHRONIC KIDNEY DISEASE, UNSPECIFIED Status: Acute Comment: f/u dr rice plan (8) Hyponatremia Code(s): E87.1 - HYPO-OSMOLALITY AND HYPONATREMIA Status: Acute - Plan * pt is dnr * f/u cardiology recommendations * family wants to think about hospice- will consult them * cardiac rehab * d/c one on one sitter * monitor hallucinations
[2017-02-27] MEDS: Ondansetron HCl/PF 4 MG/2 ML Vial IVP PRN (12:31)
[2017-02-27] MEDS: Atorvastatin Calcium 40 MG TAB PO SCH (21:15)
[2017-02-27] MEDS: Tamsulosin HCl 0.4 MG CAP PO SCH (21:15)
[2017-02-28] MEDS: Acetaminophen/Codeine 30-300mg Tablet PO PRN ×5 (04:00→23:13)
[2017-02-28 07:00] LABS: Anion Gap 18 mmol/L (10-20); BUN (Urea Nitrogen) 40 mg/dL (8.4-25.7); Calc. Creatinine Clearance 46 mL/min (70-130); Calcium 8.6 mg/dL (7.8-10.44); Carbon Dioxide 17 mmol/L (23-31); Chloride 95 mmol/L (98-107); Estimated GFR-MDRD 36
[2017-02-28] MEDS: Carvedilol 6.25 MG TAB PO SCH ×2 (09:24→17:24)
[2017-02-28] MEDS: FLUoxetine HCl 20 MG CAP PO SCH (09:25)
[2017-02-28] MEDS: Clopidogrel Bisulfate 75 MG TAB PO SCH (09:25)
[2017-02-28] MEDS: Ezetimibe 10 MG TAB PO SCH (09:26)
[2017-02-28] MEDS: Torsemide 20 MG TAB PO SCH (09:26)
[2017-02-28] MEDS: Insulin Detemir 100 UNITS/ML 40 UNITS in Pre-Filled Syringe 1 EACH SC SCH (09:30)
--- NOTE | 2017-02-28 11:57 | PDOC.PN ---
- Subjective Encounter Start Date: 02/28/17 Encounter Start Time: 11:55 doing well is making urine no f/c no n/v no hallucination today - Objective Resuscitation Status: Resuscitation Status DNR:Do Not Resuscitate MAR Reviewed: Yes Vital Signs & Weight: Vital Signs (12 hours) Temp Pulse Resp BP BP BP Pulse Ox 02/28/17 09:24 124/68 02/28/17 09:21 97.8 F 63 19 124/68 97 02/28/17 04:00 98.9 F 80 18 134/80 80 L Weight Weight 200 lb Most Recent Monitor Data Heart Rate from ECG 67 NIBP 98/59 NIBP BP-Mean 72 Respiration from ECG 27 SpO2 97 I&O: 02/27/17 02/28/17 03/01/17 06:59 06:59 06:59 Intake Total 1020 600 80 Output Total 175 425 Balance 845 600 -345 Result Diagrams: 02/26/17 04:57 02/28/17 06:27 Additional Labs: Accuchecks 02/27/17 02/27/17 02/27/17 20:40 16:54 11:52 POC Glucose 209 H 178 H 169 H Phys Exam - Physical Examination Constitutional: NAD HEENT: PERRLA Neck: no JVD Respiratory: no wheezing Cardiovascular: no significant murmur Gastrointestinal: non-tender Musculoskeletal: pulses present Neurological: moves all 4 limbs Psychiatric: A&O x 3 Dx/Plan (1) Acute on chronic systolic (congestive) heart failure Code(s): I50.23 - ACUTE ON CHRONIC SYSTOLIC (CONGESTIVE) HEART FAILURE Status : Acute Comment: ef 20% (2) Visual hallucinations Code(s): R44.1 - VISUAL HALLUCINATIONS Status: Acute Comment: sees people. some times [place] sister says- it happened in past with morphine use will monitor (3) Acute [place] Code(s): I21.3 - ST ELEVATION (STEMI) MYOCARDIAL INFARCTION OF [facility] SITE Status: Resolved Comment: stable. conservative care (4) CVA (cerebral vascular accident) Code(s): I63.9 - CEREBRAL INFARCTION, UNSPECIFIED Status: Chronic Qualifiers: Precerebral and cerebral artery: posterior cerebral artery Laterality of affected vessel: right (5) DM type 2 (diabetes mellitus, type 2) Status: Chronic Comment: BS satisfactory.. (6) HTN (hypertension) Code(s): I10 - ESSENTIAL (PRIMARY) HYPERTENSION Status: Chronic Qualifiers: Hypertension type: essential hypertension Qualified Code(s): I10 - Essential (primary) hypertension Comment: BP satisfactory.. (7) Acute on chronic renal failure Code(s): N17.9 - ACUTE KIDNEY FAILURE, UNSPECIFIED; N18.9 - CHRONIC KIDNEY DISEASE, UNSPECIFIED Status: Acute Comment: f/u dr rice plan (8) Hyponatremia Code(s): E87.1 - HYPO-OSMOLALITY AND HYPONATREMIA Status: Acute - Plan * . doing better refusing rehab f/u renal and card plan continue current treatment
--- NOTE | 2017-02-28 12:11 | PRG ---
DATE OF SERVICE: 02/28/2017 SUBJECTIVE: This is a 72-year-old gentleman being seen again for acute kidney injury. The patient does not want any intervention or any further workup. PHYSICAL EXAMINATION: GENERAL: Patient is resting. VITAL SIGNS: Afebrile, pulse 64, breathing at 16, blood pressure 124/68. OBJECTIVE: See above. Awake, alert, in no acute distress. GENERAL APPEARANCE AND MENTAL STATUS: Fair. HEAD/NECK: Normocephalic. Atraumatic. EYES: EOMI. No deformity. EARS: Clear. No ulcers. NOSE: Intact. No lesions. MOUTH: Clear. No discharge. THROAT: Clear. No exudate. LUNGS: Clear. No crackles. CARDIAC: S1, S2. No rub. ABDOMEN: Benign. BS+. GENITALIA/RECTUM: Oneil absent. BACK/EXTREMITIES: Edema 0+ Ulcer- NEUROLOGICAL: Alert and motor intact. SKIN: Rash- Bruise- LYMPHATICS: Edema- Ulcer- LABORATORY: Hemoglobin 13, potassium is 4.5, sodium 125, creatinine 1.1. ASSESSMENT AND RECOMMENDATIONS: 1. Acute kidney injury with chronic kidney disease, most likely due to cardiorenal syndrome. 2. Hyponatremia due to renal failure as well as excessive fluid intake. 3. Hypertension, stable. The patient has refused any further intervention and does not want any further workup. I will follo w this patient as needed. Please reconsult as needed.
[2017-02-28] MEDS: Atorvastatin Calcium 40 MG TAB PO SCH (22:03)
[2017-02-28] MEDS: Tamsulosin HCl 0.4 MG CAP PO SCH (22:04)
[2017-03-01] MEDS ORDERED: Ketorolac Tromethamine 30 MG/ML VIAL IVP SCH (02:30)
[2017-03-01 06:27] LABS: Anion Gap 15 mmol/L (10-20); BUN (Urea Nitrogen) 43 mg/dL (8.4-25.7); Calc. Creatinine Clearance 44 mL/min (70-130); Calcium 8.6 mg/dL (7.8-10.44); Carbon Dioxide 21 mmol/L (23-31); Chloride 95 mmol/L (98-107); Estimated GFR-MDRD 35
[2017-03-01] MEDS: Carvedilol 6.25 MG TAB PO SCH (07:52)
[2017-03-01] MEDS: Clopidogrel Bisulfate 75 MG TAB PO SCH (07:52)
[2017-03-01] MEDS: FLUoxetine HCl 20 MG CAP PO SCH (07:53)
[2017-03-01] MEDS: Ezetimibe 10 MG TAB PO SCH (07:55)
[2017-03-01] MEDS: Torsemide 20 MG TAB PO SCH (07:59)
[2017-03-01] MEDS: Insulin Detemir 100 UNITS/ML 40 UNITS in Pre-Filled Syringe 1 EACH SC SCH (07:59)
--- NOTE | 2017-03-01 09:56 | DIS ---
DATE OF DISCHARGE: 03/01/2017 DISCHARGE DISPOSITION: Home with hospice. FOLLOWUP: Follow up with primary care physician, Dr. Mina Harkins in 1 week. Follow up with Card iology in 2-3 weeks. CODE STATUS: Do not resuscitate. ALLERGIES: Patient is allergic to IODINE and STREPTOKINASE. INPATIENT CONSULTANTS: Hospitalist team for medical management. The patient was admitted by Cardio logy Service. The patient was seen and examined on the day of discharge, vital signs on the day of discharge showe d temperature 97.7, pulse rate of 80, respiration of 18, blood pressure 120/76 with O2 saturation 96 % on room air. DISCHARGE MEDICATIONS: Same as admission medications: 1. Aspirin 325 mg daily. 2. Plavix 75 mg daily. 3. Lipitor 80 mg at bedtime. 4. Carvedilol 6.25 mg b.i.d. 5. Zetia 10 mg q.a.m. 6. Prozac 20 mg daily. 7. Insulin degludec 50 units daily. 8. Probiotic 1 capsule daily. 9. Ranexa 1000 mg daily. 10. Flomax 0.4 mg at bedtime. 11. Tramadol 50 mg q.6 h. as needed. 12. Torsemide 20 mg daily as needed was added to his home medication regimen. 13 Invokana was discontinued due to elevated creatinine. Please note that patient is not on AWA inhibitor due to elevated creatinine. BRIEF HOSPITAL COURSE: The patient is a 72-year-old male with hypertension, diabetes, coronary jesse ry disease with multiple stents in the past, presented to the hospital with chest discomfort. His w orkup was consistent with anterior ST elevation OR. He underwent drug-eluting stent placement on to the distal SVG to first diagonal coronary artery graft. He was monitored in the CCU. H e was then transferred to the telemetry unit. He has been cleared by Cardiology for discharge. [facility] hospice has been arranged through [facility]. Due to elevated creatinine AWA inhibitors a re currently on hold. FINAL DIAGNOSES: 1. Anterior ST elevation myocardial infarction. His troponin was 1.6 with peak CK-MB of 12 2. Drug-eluting stent placement this admission. 3. History of coronary artery bypass grafting in the past. 4. Status post 16 stents in the past. 5. Ischemic cardiomyopathy. 6. Status post dual chamber ICD. Per Cardiology report it is probably [facility]. However, per yaima early report it is [employer] 7. Paroxysmal atrial fibrillation. The patient has declined anticoagulation in the past. 8. History of cerebrovascular accident. 9. Hyperlipidemia. 10. Hypertension. 11. Obstructive sleep apnea. 12. Acute kidney injury on chronic kidney stage 3. 13. Hyponatremia. 14. Abnormal liver function tests, probably secondary to passive hepatic congestion. 15. Acute on chronic systolic heart failure, ejection fraction 20-25%, status post automatic implan table cardioverter/defibrillator. he patient is not a candidate for AWA inhibitor due to renal fail ure at this time. Repeat labs after 1 week is recommended. 16. Mild mitral regurgitation. 17. Mild tricuspid regurgitation. 18. Diabetes mellitus type 2. 19. Depression without any suicidal ideation. 20. Benign prostatic hypertrophy. Plan of care was discussed with the patient and the family at the bedside. Total time coordinating the discharge of this patient was 35 minutes.
[2017-03-01 11:34] VITALS: BP 121/80; TEMP 97.2
--- NOTE | 2017-03-02 14:51 | EKG ---
Test Reason : CHESTPAIN Blood Pressure : / mmHG Vent. Rate : 068 BPM Atrial Rate : 068 BPM P-R Int : 148 ms QRS Dur : 122 ms QT Int : 420 ms P-R-T Axes : 065 -45 004 degrees QTc Int : 446 ms Normal sinus rhythm Left axis deviation Left bundle branch block STEMI Abnormal ECG Confirmed by WILTON BARRIOS D.O. ([id number]), film or videotape editor MILE ARIAS ([id number]) on 03/02/2017 2:51:19 PM Referred By: Confirmed By:WILTON BARRIOS D.O.
== END 2017-03-01 12:49 | disposition hospice, home (50) | DRG 246 ==
LOC: ERS 13:29 → 2NO 13:38 → CCL 13:41 → CCU 14:00 → 2NO 02-24 13:28
PROVIDERS: ADMIT Internal Medicine Cardiovascular Disease; ATTEND Internal Medicine Cardiovascular Disease
PROC: 4A023N7 Measurement of Cardiac Sampling and Pressure, Left Heart, Percutaneous Approach (ICD-10-PCS; principal; 2017-02-22)
PROC: 027034Z Dilation of Coronary Artery, One Artery with Drug-eluting Intraluminal Device, Percutaneous Approach (ICD-10-PCS; 2017-02-22)
PROC: B2131ZZ Fluoroscopy of Multiple Coronary Artery Bypass Grafts using Low Osmolar Contrast (ICD-10-PCS; 2017-02-22)
PROC: B2111ZZ Fluoroscopy of Multiple Coronary Arteries using Low Osmolar Contrast (ICD-10-PCS; 2017-02-22)
PROC: B2181ZZ Fluoroscopy of Left Internal Mammary Bypass Graft using Low Osmolar Contrast (ICD-10-PCS; 2017-02-22)
DX: I21.09 ST elevation (STEMI) myocardial infarction involving other coronary artery of anterior wall (principal); I50.23 Acute on chronic systolic (congestive) heart failure; N17.9 Acute kidney failure, unspecified; E87.1 Hypo-osmolality and hyponatremia; I13.0 Hypertensive heart and chronic kidney disease with heart failure and stage 1 through stage 4 chronic kidney disease, or unspecified chronic kidney disease; R45.851 Suicidal ideations; E87.2 Acidosis; Z95.1 Presence of aortocoronary bypass graft; I25.10 Atherosclerotic heart disease of native coronary artery without angina pectoris; Z95.5 Presence of coronary angioplasty implant and graft; I25.5 Ischemic cardiomyopathy; Z95.810 Presence of automatic (implantable) cardiac defibrillator; Z79.4 Long term (current) use of insulin; Z86.73 Personal history of transient ischemic attack (TIA), and cerebral infarction without residual deficits; Z79.01 Long term (current) use of anticoagulants; Z88.8 Allergy status to other drugs, medicaments and biological substances; Z91.041 Radiographic dye allergy status; E11.22 Type 2 diabetes mellitus with diabetic chronic kidney disease; F32.9 Major depressive disorder, single episode, unspecified; Z51.5 Encounter for palliative care; Z66 Do not resuscitate; I48.0 Paroxysmal atrial fibrillation; E78.5 Hyperlipidemia, unspecified; G47.33 Obstructive sleep apnea (adult) (pediatric); N18.3 Chronic kidney disease, stage 3 (moderate); I08.1 Rheumatic disorders of both mitral and tricuspid valves; N40.0 Benign prostatic hyperplasia without lower urinary tract symptoms; E11.319 Type 2 diabetes mellitus with unspecified diabetic retinopathy without macular edema; I65.01 Occlusion and stenosis of right vertebral artery; I65.21 Occlusion and stenosis of right carotid artery
CPT/HCPCS: 36415; 36416; 71010; 74000; 76942; 80048; 80053; 80069; 82550; 82553; 83735; 84484; 85025; 85347; 92928; 93005; 93010; 93455; 93567; 93798; 94760; 96374; 96375; A4216; C1725; C1769; C1874; C1887; C9113; C9600; G8978-GP-CL; G8979-GP-CJ; J0153; J1200; J1644; J1815; J1885; J2270; J2405; J2930; Q0162